=== PATIENT | female | born 1995 | race Caucasian/White ===

== ENCOUNTER 2023-05-26 13:31 | Outpatient (CLI) | payer SELFPAY ==
[2023-05-26 15:45] VITALS: BP 115/73; PULSE 74; RESP 16; O2SAT 100
== END 2023-05-26 16:00 | disposition home or self-care (01) ==
LOC: UTC.OUT 13:35 → INF 13:37
PROVIDERS: Visit Provider Physician Assistant
DX: Z31.82 Encounter for Rh incompatibility status (principal)
CPT/HCPCS: 36415; 85461; 96372; J2790

== ENCOUNTER 2024-11-17 09:52 | Outpatient (CLI) | payer SELFPAY ==
[2024-11-17] MEDS: RHO(D) IMMUNE GLOBULIN 1,500 UNIT (300MCG) SYRINGE 300 MCG IM (10:14)
--- NOTE | 2024-11-17 10:17 | PC.NURSE ---
PT obs for 20min post IM injection to monitor for possible reactions.
== END 2024-11-17 10:17 | disposition home or self-care (01) ==
PROVIDERS: PCP Nurse Practitioner Family; Visit Provider Nurse Practitioner Family
DX: Z67.91 Unspecified blood type, Rh negative (principal)
CPT/HCPCS: 96372; G0463; J2790